=== PATIENT | female | born 1995 | race Caucasian/White ===

== ENCOUNTER 2016-10-07 12:24 | Emergency (ER) | payer OTHER, BC ==
[~2016-10-07] VITALS: Ht 160 cm; Wt 46.9 kg
[~2016-10-07 12:24] MED LIST: FLEXERIL10 MG PO; MOTRIN800 MG PO; PERCOCET 5/31 TABLET PO; SIMILAC PRENAT1 EACH PO; ZOFRAN ODT4 MG PO; ZOFRAN4 MG PO
[2016-10-07 15:58] LABS: HEMATOCRIT 41.3 % (36.0-46.0); MCH 30.8 PG (29.0-34.0); MCHC 33.7 G/DL (30.0-36.0); MCV 91.6 FL (83-99); MEAN PLAT.VOLUME 11.3 uM^3 (9.5-12.4); PLATELET COUNT 189 K/uL (156-360); RBC DIS.WIDTH-CV 13.4 % (11.8-14.6); RBC DIS.WIDTH-SD 45.6 % (39-53); RED BLOOD COUNT 4.51 M/uL (3.80-5.20)
[2016-10-07 16:08] LABS: CHLORIDE 106 mEq/L (99-109); POTASSIUM 4.3 mEq/L (3.7-5.4); SODIUM 139 mEq/L (136-147)
[2016-10-07 16:10] LABS: GLUCOSE 94 mg/dL (70-99)
[2016-10-07 16:11] LABS: ANION GAP 7 MEQ/L (2-14)
[2016-10-07 16:12] LABS: TOTAL BILIRUBIN 0.7 mg/dL (0.0-1.0)
[2016-10-07 16:13] LABS: ALKALINE PHOSPHATASE 62 IU/L (3-129)
[2016-10-07 16:14] LABS: GFR ESTIMATE (CALCULATED) > 59 mL/min/
[2016-10-07 16:15] LABS: UREA NITROGEN (BUN) 7 mg/dL (9-23)
[2016-10-07 16:17] LABS: LIPASE 15 U/L (1.0-51.0)
[2016-10-07 16:25] LABS: QUANTITATIVE HCG < 4.0 MIU/ML
[2016-10-07 17:01] VITALS: BP 108/64
== END 2016-10-07 17:02 | disposition home or self-care (01) ==
LOC: EME 12:24
PROVIDERS: Emergency Medicine
DX: M54.9 Dorsalgia, unspecified (principal); V49.40XA Driver injured in collision with unspecified motor vehicles in traffic accident, initial encounter; F17.200 Nicotine dependence, unspecified, uncomplicated
CPT/HCPCS: 71020; 80053; 83690; 84702; 85027; 99281; 99284